=== PATIENT | female | born 2000 | race Caucasian/White ===

== ENCOUNTER 2019-12-19 16:39 | Emergency (ER) | payer MEDICAID ==
[~2019-12-19] VITALS: Ht 165.1 cm; Wt 75.0 kg
[2019-12-19] MEDS ORDERED: NEURONTIN100 M1 PO (16:52)
[2019-12-19] MEDS ORDERED: ULTRAM50 M1 PO (16:52)
[2019-12-19] MEDS ORDERED: AYGESTIN PO (16:53)
[2019-12-19] MEDS ORDERED: XANAX0.25 M1 PO (16:53)
[2019-12-19] MEDS ORDERED: CLARITIN 1010 MG/TAB PO (16:54)
[2019-12-19] MEDS ORDERED: PROBIOTIC1 EAC1 PO (16:54)
[2019-12-19] MEDS ORDERED: FLONASE ALLERG9.9 ML NS (16:54)
[2019-12-19] MEDS ORDERED: NORCO 325 MG-51 TA1 PO (18:38)
[2019-12-19 19:00] VITALS: BP 136/74
== END 2019-12-19 19:05 | disposition home or self-care (01) ==
LOC: ED 16:39
DX: M54.17 Radiculopathy, lumbosacral region (principal); F32.9 Major depressive disorder, single episode, unspecified; Z79.1 Long term (current) use of non-steroidal anti-inflammatories (NSAID); Z79.51 Long term (current) use of inhaled steroids
CPT/HCPCS: J1885

== ENCOUNTER 2019-12-31 23:16 | Emergency (ER) | payer MEDICAID ==
[~2019-12-31 23:16] MED LIST: AYGESTIN PO; CLARITIN 1010 MG/TAB PO; FLONASE ALLERG9.9 ML NS; NEURONTIN100 M1 PO; NORCO 325 MG-51 TA1 PO; PROBIOTIC1 EAC1 PO; ULTRAM50 M1 PO; XANAX0.25 M1 PO
[2019-12-31] MEDS ORDERED: SEROQUEL 2525 MG/TAB PO (23:44)
[2020-01-01 00:12] VITALS: BP 128/93
== END 2020-01-01 00:12 | disposition home or self-care (01) ==
LOC: ED 23:16
DX: S16.1XXA Strain of muscle, fascia and tendon at neck level, initial encounter (principal); F41.9 Anxiety disorder, unspecified; F32.9 Major depressive disorder, single episode, unspecified; Z79.51 Long term (current) use of inhaled steroids; X58.XXXA Exposure to other specified factors, initial encounter
CPT/HCPCS: J2360

== ENCOUNTER 2020-03-12 10:46 | Emergency (ER) | payer MEDICAID ==
[~2020-03-12 10:46] MED LIST changes: +SEROQUEL 2525 MG/TAB PO
[2020-03-12] MEDS ORDERED: IBU800 M1 PO (11:03)
[2020-03-12] MEDS ORDERED: [UNRECOGNIZED DRUG - REMARK] PO (11:04)
[2020-03-12] MEDS ORDERED: AMBIEN10 MG PO (11:04)
[2020-03-12 12:30] VITALS: BP 112/69
== END 2020-03-12 12:33 | disposition home or self-care (01) ==
LOC: ED 10:46
DX: M54.16 Radiculopathy, lumbar region (principal); F31.9 Bipolar disorder, unspecified; F41.9 Anxiety disorder, unspecified; F43.10 Post-traumatic stress disorder, unspecified; Z79.891 Long term (current) use of opiate analgesic; Z79.899 Other long term (current) drug therapy
CPT/HCPCS: J1885; J2360

== ENCOUNTER → 2020-07-11 | Outpatient (CLI) | payer MEDICAID ==
[~2020-07-11] MED LIST changes: +AMBIEN10 MG PO; +IBU800 M1 PO; +[UNRECOGNIZED DRUG - REMARK] PO
[2020-07-11 09:26] LABS: ALBUMIN 4.2 g/dL (3.5-5.0); POTASSIUM 4.2 mmol/L (3.5-5.1)
[2020-07-11 09:27] LABS: CALCIUM 8.8 mg/dL (8.3-10.5)
[2020-07-11 09:28] LABS: TOTAL PROTEIN 7.2 g/dL (6.4-8.3)
[2020-07-11 09:30] LABS: EOS # 0.1 (0.04-0.40); EOS % 1.1 % (1.0-5.0); HEMOGLOBIN 15.1 g/dL (12.5-16.0); LYMPH# 2.1 (1.50-4.00); MEAN CELL VOLUME 81 fl (78-100); MEAN CORPUSCULAR HEMOGLOBIN 26 pg (27-31); MEAN CORPUSCULAR HGB CONC 32 g/dL (33-37); MEAN PLATELET VOLUME 9.7 fl (7.4-10.4); MONO # 0.4 (0.20-0.80); NEU # 2.2 (1.40-6.50); PLATELET COUNT 307 K/mm3 (130-400); RED BLOOD COUNT 5.78 M/mm3 (4.10-5.30); RED CELL DISTRIBUTION WIDTH 13.5 % (11.5-14.5); TOTAL BILIRUBIN 0.4 mg/dL (0.2-1.2); WHITE BLOOD COUNT 4.7 K/mm3 (4.8-10.8)
== END ==
LOC: LAB 08:57
PROVIDERS: Physician Assistant
DX: Z13.220 Encounter for screening for lipoid disorders (principal); Z13.29 Encounter for screening for other suspected endocrine disorder; R11.0 Nausea; R53.83 Other fatigue

== ENCOUNTER → 2020-10-07 | Outpatient (CLI) | payer MEDICAID | LOC: RAD 09:37 | DX: M79.671 Pain in right foot (principal); M79.672 Pain in left foot; G89.29 Other chronic pain ==

== ENCOUNTER → 2020-11-18 | Outpatient (CLI) | payer MEDICAID ==
[2020-11-18 15:14] LABS: BASO # 0.04 (0.02-0.10); EOS # 0.07 (0.04-0.40); EOS % 1.1 % (1.0-5.0); HEMATOCRIT 46.9 % (37.0-47.0); HEMOGLOBIN 15.4 g/dL (12.5-16.0); LYMPH# 2.26 (1.50-4.00); MEAN CELL VOLUME 81 fl (78-100); MEAN CORPUSCULAR HEMOGLOBIN 27 pg (27-31); MEAN CORPUSCULAR HGB CONC 33 g/dL (33-37); MEAN PLATELET VOLUME 9.5 fl (7.4-10.4); MONO # 0.52 (0.20-0.80); NEU # 3.72 (1.40-6.50); PLATELET COUNT 322 K/mm3 (130-400); RED BLOOD COUNT 5.81 M/mm3 (4.10-5.30); RED CELL DISTRIBUTION WIDTH 12.9 % (11.5-14.5); WHITE BLOOD COUNT 6.6 K/mm3 (4.8-10.8)
[2020-11-18 15:31] LABS: ALBUMIN 4.1 g/dL (3.5-5.0); POTASSIUM 4.2 mmol/L (3.5-5.1)
[2020-11-18 15:32] LABS: CALCIUM 8.7 mg/dL (8.3-10.5)
[2020-11-18 15:33] LABS: TOTAL PROTEIN 7.1 g/dL (6.4-8.3)
[2020-11-18 15:35] LABS: TOTAL BILIRUBIN 0.4 mg/dL (0.2-1.2)
[2020-11-19 11:34] LABS: ANA SCREEN with REFLEX Negative (Negative)
== END ==
LOC: LAB 14:53
PROVIDERS: Physician Assistant
DX: M25.50 Pain in unspecified joint (principal)

== ENCOUNTER 2021-01-30 13:36 | Outpatient (RCR) | payer OTHER | END 2021-04-30 | disposition home or self-care (01) | LOC: PT | DX: M79.671 Pain in right foot (principal); M79.672 Pain in left foot ==

== ENCOUNTER → 2021-08-11 | Outpatient (CLI) | payer OTHER ==
[2021-08-11 22:01] LABS: HEPATITIS C VIRUS ANTIBODY Negative (Negative)
[2021-08-17 00:22] LABS: HEP C GENOTYPE A
== END ==
LOC: LAB 13:44
DX: K90.0 Celiac disease (principal)

== ENCOUNTER → 2021-09-29 | Outpatient (CLI) | payer OTHER | LOC: RAD 15:28 | DX: Z13.820 Encounter for screening for osteoporosis (principal); M54.50 Low back pain, unspecified ==

== ENCOUNTER → 2021-10-02 | Outpatient (CLI) | payer OTHER ==
[2021-10-02 12:34] LABS: BASO # 0.02 K/mm3 (0.02-0.10); EOS # 0.06 K/mm3 (0.04-0.40); EOS % 1.2 % (1.0-5.0); HEMATOCRIT 47.8 % (37.0-47.0); HEMOGLOBIN 15.7 g/dL (12.5-16.0); LYMPH# 1.72 K/mm3 (1.50-4.00); MEAN CELL VOLUME 86 fl (78-100); MEAN CORPUSCULAR HEMOGLOBIN 28 pg (27-31); MEAN CORPUSCULAR HGB CONC 33 g/dL (33-37); MEAN PLATELET VOLUME 9.8 fl (7.4-10.4); MONO # 0.24 K/mm3 (0.20-0.80); NEU # 2.81 K/mm3 (1.40-6.50); PLATELET COUNT 270 K/mm3 (130-400); RED BLOOD COUNT 5.55 M/mm3 (4.10-5.30); RED CELL DISTRIBUTION WIDTH 12.5 % (11.5-14.5); WHITE BLOOD COUNT 4.9 K/mm3 (4.8-10.8)
[2021-10-02 12:42] LABS: ALBUMIN 4.2 g/dL (3.5-5.0)
[2021-10-02 12:43] LABS: CALCIUM 9.5 mg/dL (8.3-10.5)
[2021-10-02 12:44] LABS: TOTAL PROTEIN 7.2 g/dL (6.4-8.3)
[2021-10-02 12:46] LABS: TOTAL BILIRUBIN 0.5 mg/dL (0.2-1.2)
== END ==
LOC: LAB 11:49
PROVIDERS: Physician Assistant
DX: Z13.220 Encounter for screening for lipoid disorders (principal); Z13.820 Encounter for screening for osteoporosis; K90.0 Celiac disease; M54.50 Low back pain, unspecified; M25.50 Pain in unspecified joint

== ENCOUNTER → 2021-10-10 | Outpatient (CLI) | payer OTHER | LOC: MAMMO 14:22 | DX: Z13.820 Encounter for screening for osteoporosis (principal); M54.50 Low back pain, unspecified ==

== ENCOUNTER → 2023-09-18 | Outpatient (CLI) | payer OTHER ==
[~2023-09-18] MED LIST changes: +ZYRTEC ALLERGY10 MG PO
== END ==
LOC: RAD 14:41
DX: M25.511 Pain in right shoulder (principal)

== ENCOUNTER → 2023-10-01 | Outpatient (CLI) | payer OTHER | LOC: RAD 14:52 | DX: R06.00 Dyspnea, unspecified (principal) ==

== ENCOUNTER → 2023-10-29 | Outpatient (CLI) | payer OTHER | LOC: LAB 08:00 | DX: R19.5 Other fecal abnormalities (principal) ==